=== PATIENT | male | born 1960 | race Caucasian/White ===

== ENCOUNTER 2016-12-11 01:19 | Emergency (ER) | payer MEDICARE, SELFPAY ==
[~2016-12-11 01:19] MED LIST: ASPIRIN EC81 MG PO; ASPIRIN325 MG PO; ATORVASTATIN CA40 MG PO; BUPROPION HCL150 M1 PO; CARAFATE DPS1 GM PO; CARVEDILOL25 MG PO; CARVEDILOL6.25 MG PO; CATAPRES-DPS0.1 MG PO; CLARITIN DPS10 MG PO; CLOPIDOGREL75 MG PO; COLACE-DPS100 MG PO; COLACE100 MG PO; COZAAR DPS50 MG PO; COZAAR100 MG PO; FOLIC ACID1 MG PO; FOLVITE-DPS1 MG PO; FUROSEMIDE80 MG PO; IMDUR DPS30 MG PO; IMDUR DPS60 MG PO; INSULIN U SQ; KLOR-CON M2020 ME1 PO; LASIX DPS20 MG PO; LASIX DPS80 MG PO; LIPITOR DPS40 MG PO; MAALOX DPS30 ML PO; METOLAZONE5 MG PO; NITROSTAT0.4 MG SL; PLAVIX75 MG PO; PROTONIX40 MG PO; PROVENTIL HFA6.7 GM IH; RENEXA PO; REQUIP1 MG PO; SEN-O-TAB8.6 MG PO; SENNA8.6 M1 PO; SURFAK240 MG PO; TYLENOL325 MG PO; U 500; U 500 SQ; ULTRAM DPS50 MG PO; VITAMIN B1100 MG PO; WELLBUTRIN XL150 MG PO; WELLBUTRIN100 MG PO; ZOFRAN4 MG PO; ZOLOFT DPS100 MG PO
--- NOTE | 2016-12-11 05:25 | ER ---
ADMIT: 12/11/2016 RM/LOC: ER [facility] MR#: [id number] [address] [address] TATE GREGORY [address] [place] [address] Emergency Room Report SEX: M AGE: 56 : 1960 DATE: 12/11/2016 HISTORY OF PRESENT ILLNESS: The patient is a 56-year-old male, came to the ER with chief complaint of high blood sugar and headaches. Per the patient, he has a history of chronic kidney disease stage 3, diabetes, and CHF, and quadruple bypass. The patient states his blood sugar has always been under control in the 150s, but tonight at 10:00 p.m., he checked the blood sugar, was 500, and after that, he had 120 units of Humulin 500, and the next time before coming to the ER he checked the blood sugar, it was 400. The patient denies any nausea, vomiting, abdominal pain, or diarrhea. The patient denies any trauma. The patient said he has generalized headache, which is moderate and started gradually, and also denies any neck pain or neck stiffness or visual changes or fever at home. Per patient, he has had similar headaches in the past before. PHYSICAL EXAMINATION: VITAL SIGNS: Blood pressure was elevated with a systolic of 170 to 180s, and the patient was mildly tachycardic, was afebrile. HEAD AND NECK: Soft. Pupils were 3 mm, reactive to light bilaterally. Normal extraocular movements. Cranial nerve motor and sensory and cerebellar tests are all negative. LUNGS: Equal normal bilateral breath sounds. HEART: Normal S1, S2 without any murmurs, ABDOMEN: Soft without any tenderness. EXTREMITIES: No tenderness on the lower extremities. The rest of the physical exam is noncontributory. LABORATORY DATA: Urine was negative for ketones. Considering the patient's blood sugar and history of CHF, the patient received 500 mL of normal saline IV. The headache was controlled with morphine and Tylenol. Followup blood pressure was decreasing. Blood sugar was in rate of 300s. The patient could tolerate the p.o., and has no signs or symptoms of DKA or other emergencies of hyperglycemia. The patient recently got a large dose of insulin. PLAN: The patient can be discharged to home safely with return precautions and follow up with the primary doctor tomorrow. The patient acknowledged he understood the plan and agreed with it. Misael Luo MD/ carmela JOB #: [id number] CC: Misael Luo MD, Attending Physician Davidson Pate MD, Family Physician
[2017-02-08] MEDS ORDERED: COMBIVENT RESPIM4 GM IH (20:00)
[2017-02-08] MEDS ORDERED: PLAVIX75 MG PO (20:01)
[2017-02-08] MEDS ORDERED: ATORVASTATIN CA80 MG PO (20:01)
[2017-02-08] MEDS ORDERED: WELLBUTRIN75 MG PO (20:01)
[2017-02-08] MEDS ORDERED: COLACE-DPS100 MG PO (20:01)
[2017-02-08] MEDS ORDERED: LASIX DPS80 MG PO (20:02)
[2017-02-08] MEDS ORDERED: FLONASE 0.05% D16 GM NS (20:02)
[2017-02-08] MEDS ORDERED: [UNRECOGNIZED DRUG - OTHER] PO (20:03)
[2017-02-08] MEDS ORDERED: U-500 SQ ×2 (20:07→20:08)
[2017-02-08] MEDS ORDERED: IMDUR DPS60 MG PO (20:08)
[2017-02-08] MEDS ORDERED: RANEXA500 MG PO (20:09)
[2017-02-08] MEDS ORDERED: COZAAR100 MG PO (20:09)
[2017-02-08] MEDS ORDERED: PROTONIX40 MG PO (20:09)
[2017-02-08] MEDS ORDERED: KLOR-CON M2020 ME1 PO (20:09)
[2017-02-08] MEDS ORDERED: ZOLOFT DPS50 MG PO (20:10)
[2017-02-08] MEDS ORDERED: REQUIP1 MG PO (20:10)
[2017-02-08] MEDS ORDERED: SENOKOT DPS8.6 MG PO (20:10)
[2017-02-08] MEDS ORDERED: ASPIRIN EC81 MG PO (20:11)
[2017-02-08] MEDS ORDERED: TYLENOL DPS325 MG PO (20:11)
[2017-02-08] MEDS ORDERED: VITAMIN B1100 MG PO (20:11)
[2017-02-08] MEDS ORDERED: FA-80.8 MG PO (20:12)
[2017-02-08] MEDS ORDERED: COREG DPS6.25 MG PO (20:12)
== END 2016-12-11 03:54 | disposition home or self-care (01) ==
LOC: ER 01:19
DX: N18.3 Chronic kidney disease, stage 3 (moderate) (principal); E11.22 Type 2 diabetes mellitus with diabetic chronic kidney disease; R51 Headache; Z98.890 Other specified postprocedural states; Z79.4 Long term (current) use of insulin; Z88.2 Allergy status to sulfonamides; Z79.82 Long term (current) use of aspirin; Z79.899 Other long term (current) drug therapy

== ENCOUNTER 2017-02-06 05:42 | Observation (INO) | payer OTHER, MEDICARE ==
[~2017-02-06] VITALS: Ht 182.9 cm; Wt 91.7 kg
--- NOTE | ~2017-02-06 | HP ---
ADMIT: 02/06/2017 RM/LOC: 427 [facility] MR#: [id number] [address] [address] STEPHANE GREGORY [address] [place] [address] History and Physical SEX: M AGE: 56 : 1960 DATE OF SERVICE: 02/06/2017 CHIEF COMPLAINT: Sweats, nausea, diarrhea, elevated troponin, elevated creatinine. HISTORY OF PRESENT ILLNESS: Stephane is a very pleasant 56-year-old [place]-[facility] patient, normally seen at the [facility], presented to the [facility] Emergency Department today after he woke up about 0400 hours this morning with night sweats, nausea, and a sense of orthostatic dizziness. His symptoms this morning were preceded by watery diarrhea for about 7-10 days. He denies any chest pain, shortness of breath, fevers, coffee-ground emesis, melena, hematochezia, recent sick contacts, or travel. PAST MEDICAL HISTORY: 1. Coronary artery disease, status post quadruple coronary artery bypass grafting in 2008 and then subsequent PCI in 2009. 2. Normal left heart catheterization in January of 2015. 3. History of bilateral carotid vascular disease. 4. History of TIAs. 5. History of poorly-controlled diabetes mellitus type 2. Hemoglobin A1c at this time is 10.7. 6. Hypertension. 7. COPD. 8. Gastroesophageal reflux disease. 9. Restless legs syndrome. 10.Peripheral vascular disease. 11.Chronic diastolic heart failure. 12.Macular degeneration. 13.Cataracts. 14.Gout. 15.Depression and anxiety. 16.Obstructive sleep apnea, on CPAP. 17.Hyperlipidemia. PAST SURGICAL HISTORY: He reports: 1. Quadruple bypass in 2008. 2. Previous cholecystectomy. 3. Previous appendectomy. 4. Previous coronary artery stenting. ALLERGIES: HE IS ALLERGIC TO SULFA. MEDICATIONS: His outpatient medications include: 1. Combivent 1 to 2 puffs four times daily as needed. 2. Wellbutrin 150 mg daily. 3. Atorvastatin 80 mg daily. 4. Plavix 75 mg daily. 5. Colace 200 mg twice daily as needed. 6. Flonase nasal spray, two sprays each nostril daily. ADMIT: 02/06/2017 RM/LOC: 427 [facility] MR#: [id number] [address] [address] [facility] [address] [place] [address] History and Physical SEX: M AGE: 56 : 1960 7. Lasix 160 mg twice daily. 8. Guaifenesin 400 mg q.i.d. as needed. 9. U-500 insulin 145 units in the morning, 80 units at noon, and 40 units at bedtime. 10.Isosorbide mononitrate 60 mg daily. 11.Losartan 100 mg daily. 12.Pantoprazole 40 mg twice daily. 13.Potassium chloride 20 mEq daily. 14.Ranolazine 500 mg twice daily. 15.Requip 1 mg at bedtime. 16.Senna 8.6 mg daily as needed. 17.Zoloft 150 mg daily. 18.Thiamine 100 mg daily. 19.Tylenol 650 mg t.i.d. as needed. 20.Aspirin 81 mg daily. 21.Folic acid 800 mcg daily. SOCIAL HISTORY: His service was in the [employer]. 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 He is now on disability. He denies any history of tobacco use. He denies any alcohol use. He denies recreational drug use. He and his live in [facility]. FAMILY HISTORY: Remarkable for extensive history of diabetes and cardiovascular disease. REVIEW OF SYSTEMS: As per HPI. All others reviewed and were negative. PHYSICAL EXAMINATION: VITAL SIGNS: Blood pressure is 140/70, pulse 97, respirations 14, temp 96.0, O2 saturation is 90% on room air. GENERAL: He is awake, alert, obese, in no acute distress. Comfortable on the hospital bed. HEENT: Normocephalic, atraumatic. HEART: Regular rate and rhythm. LUNGS: Clear to auscultation bilaterally. ABDOMEN: Obese, soft, nontender, nondistended. No rebound, guarding, or masses. EXTREMITIES: No cyanosis, clubbing, or edema. LABORATORY AND X-RAY DATA: CBC shows a white count of 7.1, hemoglobin 10.9, platelets of 240. Chest x-ray through the ER shows a left costophrenic angle pleural and parenchymal scarring. Hemoglobin A1c is 10.7. CMP remarkable for a creatinine of 2.1, his baseline is about 1.5 to 1.6. Total cholesterol is 200, triglycerides 442, HDL is 36, his non HDL is 164. Troponin was 0.078. CK 123, CK-MB 2.2. ASSESSMENT: 1. Elevated cardiac troponin. 2. Nausea. ADMIT: 02/06/2017 RM/LOC: 427 [facility] MR#: [id number] [address] [place] [address] [facility] [id number] [place] [id number] History and Physical SEX: M AGE: 56 : 1960 3. Diarrhea. 4. Acute kidney injury. 5. Poorly-controlled diabetes mellitus type 2. 6. Hypertension. 7. Hyperlipidemia. 8. Coronary artery disease, status post bypass and stents. 9. Peripheral vascular disease. 10.History of transient ischemic attack. 11.History of diabetic arthropathy, peripheral neuropathy, retinopathy, and nephropathy. 12.Chronic obstructive pulmonary disease. 13.Gastroesophageal reflux disease. 14.Restless legs syndrome. 15.Anemia of chronic disease. 16.Chronic diastolic heart failure. 17.Depression and anxiety. 18.Gout. 19.History of obstructive sleep apnea, on CPAP. PLAN: We are going to check an additional two sets of cardiac enzymes, an echocardiogram, and obtain an AURA consult. We will check stool studies for enteric pathogen, C. diff, and O and P. Dr. Bledsoe with Nephrology has been consulted for his elevated creatinine and acute kidney injury. His insulin regimen is very heavy on the long-acting insulin with no mealtime insulin, he has actually got a pancake in the room with him. I suspect he probably has an A1c of 10.7 because he does not cover his meals. At this time, I am not going to continue t.i.d. dosing of U-500 insulin; instead, I am getting to start him on some Lantus, long-acting insulin. We will start him on a subcutaneous sliding scale insulin. We will try and keep his sugars down as best we can but ultimately, he may need to see an typesetters printer as an outpatient to get this under better control. Further management is going to be dependent on his clinical course. Dane Ibanez MD/ sallyl JOB #: [id number] CC: Dane Ibanez MD, Attending Physician Davidson Pate MD, Family Physician
--- NOTE | ~2017-02-06 | ECH ---
Transthoracic Echocardiography Report (TTE) Demographics Patient Name TATE GREGORY Date of Study 02/06/2017 Patient Number [id number] Visit Number [id number] Date of 1960 Room Number 427 Accession Number [id number] Gender Male Age 56 year(s) Referring King Jan Rincon MD Technical Analyst Ramya Gannon Physician Marcelle Novak MD [facility] Physician Interpreting Vi SMALL Junior Brand Manager Physician Donato Supervising Ordering Physician Marcelle Novak MD, MD/P Nurse Stress Orchid Transplanter Conclusions Contractility Score Summary Normal Left Ventricular contractility was noted. Summary Technically fair exam. The estimated left ventricular ejection fraction is 60%. Moderate concentric left ventricular hypertrophy. Diastolic assessment reveals Grade I diastolic dysfunction. No significant valvular abnormalities. Recommendation The patient will be given the results of this study by the physician who ordered the exam. Procedure Type of Study TTE procedure:Echo Complete SF. Procedure Date Date: 02/06/2017 Start: 09:55 AM Technical Quality: Fair due to body habitus. Indications:Elevated Troponin, Diabetes, RBBB and History of CABG. Additional Indications:History of stents Appropriate Use Criteria: 9 Height: 72 inches Weight: 260 pounds BSA: 2.38 m Rhythm: Sinus with bundle branch block HR: 80 bpm BP: 137/70 mmHg Allergies - Sulfa. M-Mode/2D Measurements LV Diastolic Dimension: 4.72 cm LV Systolic Dimension: 3.2 cm LV Septum Diastolic: 1.56 cm LV PW Diastolic: 1.53 cm AO Root Dimension: 3.07 cm Cardiac Output: 5 l/min LA Dimension: 4.92 cm Cardiac Index: 2.1 l/min*m RV Diastolic Dimension: 3.58 cm LA volume index: 30 ml/m LVOT: 1.97 cm LVOT VTI: 20.51 cm RV Base: 2.9 cm LV Stroke volume: 62.48 ml RV Mid: 1.6 cm LV Stroke volume index: 26.25 ml/m TAPSE: 1.7 cm TDI-S': 10 cm/s Doppler Measurements AV Peak Velocity: 1.4 m/s MV Peak E-Wave: 1.09 m/s AV Peak Gradient: 7.84 mmHg MV Peak A-Wave: 1.2 m/s AV Mean Gradient: 4.12 mmHg MV E/A Ratio: 0.91 LVOT Peak Velocity: 1.15 m/s MV P1/2t: 63.3 msec AV Area (Continuity):2.53 cm MV Deceleration Time: 203.1 msec MV Area (PHT): 3.48 cm PV Peak Velocity: 1.06 m/s E' Septal Velocity: 0.07 m/s PV Peak Gradient: 4.49 mmHg E' Lateral Velocity: 0.06 m/s A' Septal Velocity: 0.11 m/s A' Lateral Velocity: 0.12 m/s RA Area: 14.73 cm Findings Left Ventricle The left ventricle is normal in size . Moderate concentric left ventricular hypertrophy. Diastolic assessment reveals Grade I diastolic dysfunction. Right Ventricle Normal right ventricle structure and function. Left Atrium Normal left atrial size. Right Atrium Normal right atrial size. Mitral Valve Mild mitral annular calcification. Aortic Valve The aortic valve is mildly sclerotic. Tricuspid Valve Normal tricuspid valve structure and function. Pulmonic Valve Normal pulmonic valve structure and function. Trivial pulmonic valve regurgitation by color Doppler. Pericardial Effusion No evidence of pericardial effusion. Miscellaneous Visualized portions of the aortic root and ascending aorta appear normal in size. Pleural Effusion No evidence of pleural effusion. Contractility Score LV regional wall motion:(0-Non visualized 1-Normal 2-Hypokinesis 3-Akinesis 4-Dyskinesis 5-Aneurysm) Signature
--- NOTE | 2017-02-07 11:04 | CO ---
ADMIT: 02/06/2017 RM/LOC: 427 [facility] MR#: [id number] [address] [address] TATE GREGORY [place] [address] [place] [address] Consultation SEX: M AGE: 56 : 1960 DATE OF CONSULTATION: 02/06/2017 ATTENDING PHYSICIAN: Dane Ibanez MD CONSULTING PHYSICIAN: Dmitriy Bledsoe MD REASON FOR CONSULTATION: Chronic kidney disease stage 3. HISTORY OF PRESENT ILLNESS: The patient is a 56-year-old gentleman, who has a history of uncontrolled type 2 diabetes mellitus along with coronary artery disease, for which he has had a CABG along with PCI as well as hypertension and chronic diastolic heart failure who presented to the hospital earlier this morning with a chief complaint of weakness. He reports that he was in his usual state of health until last night but woke up this morning and was very weak. His had to help him to the chair. He was eventually evaluated and was found to have an NSTEMI. He was transferred to [facility] for further care. He tells me that he has had 2 or 3 episodes of weakness over the last week and a half. He has also been having some loose stools over that duration of time. Most of the days, he only has one bowel movement, but sometimes 2 or 3 bowel movements. Otherwise has no localizing complaints. No chest pain. No shortness of breath. No urinary complaints. He has been having occasional dizziness. Appetite and energy levels have been fair. REVIEW OF SYSTEMS: A complete review of systems is negative in detail except as mentioned in history of present illness above. PAST MEDICAL HISTORY: 1. Coronary artery disease, status post CABG as well as PCI. 2. TIA. 3. Uncontrolled diabetes mellitus complicated by retinopathy, nephropathy, and neuropathy. 4. Hypertension. 5. GERD. 6. COPD. 7. Peripheral vascular disease. 8. Erectile dysfunction. 9. Chronic diastolic heart failure. 10.Macular degeneration. 11.Gout. 12.Depression. 13.Obstructive sleep apnea, on CPAP. 14.Dyslipidemia. ALLERGIES: SULFA. MEDICATIONS: He reports being on: 1. Plavix. 2. Coreg. ADMIT: 02/06/2017 RM/LOC: 427 [facility] MR#: [id number] [address] [address] [facility] [address] [place] [address] Consultation SEX: M AGE: 56 : 1960 3. Lasix. 4. Potassium supplements. 5. Ranexa. 6. Zoloft. 7. He also takes insulin. A full medication list is to follow. It appears he is not on renin angiotensin blockade although he was on it previously. FAMILY HISTORY: No family history of chronic kidney disease on renal replacement therapy. SOCIAL HISTORY: He is disabled. 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 He is lifelong nonsmoker. No alcohol or recreational drug use at this time. He is and lives with his and his youngest daughter. PHYSICAL EXAMINATION: VITAL SIGNS: Temperature 96.1 Fahrenheit, pulse 87, blood pressure 137/70. GENERAL: He is comfortable in the bed. HEENT: Head is nontraumatic and normocephalic. Extraocular intact. No conjunctival pallor. Dry mucosa. NECK: Supple without any JVD. CHEST: Right basilar crackles. CVS: Regular rate and rhythm. S1, S2 heard. No rubs, murmurs, or gallops. ABDOMEN: Soft, nontender. EXTREMITIES: No lower extremity edema. SKIN: No rash or nodules. NEUROLOGIC: Alert, awake, and oriented x3. He is able to move all his extremities. PSYCHIATRIC: Affect and memory within normal limits. MUSCULOSKELETAL: Major joints within normal limits. Range of motion within normal limits. LABORATORY DATA: Reviewed. BMP with sodium 140, potassium 3.7, creatinine 2.1, calcium 9.0, magnesium 1.9. Hemoglobin is 10.9. ADMIT: 02/06/2017 RM/LOC: 427 [facility] MR#: [id number] [address] [address] [facility] [address] [place] [address] Consultation SEX: M AGE: 56 : 1960 ASSESSMENT/PLAN: 1. Chronic kidney disease stage 3 - likely secondary to diabetic nephropathy. Baseline serum creatinine is not entirely clear but it was 1.6 in September 2016 and 2.1 in November 2016, and 2.1 today. I will check urine studies and quantify proteinuria if any. I recommend blood pressure control to retard progression of chronic kidney disease. 2. Hypertension - blood pressure is okay. I will hold his diuretics for the time being considering his complaints of diarrhea. It appears, he is not on a renin-angiotensin blockade and I would like to initiate that if his kidney function stays stable and there are no other contraindications. Thank you for this consultation. Please do not hesitate to contact me with any questions. Dmitriy Bledsoe MD/ carmela JOB #: [id number] CC: Dane Ibanez MD, Attending Physician Davidson Pate MD, Family Physician
--- NOTE | 2017-02-08 13:01 | ER ---
ADMIT: 02/06/2017 RM/LOC: ER [facility] MR#: [id number] [address] [address] TATE GREGORY Sam[place] [address] [place] [address] Emergency Room Report SEX: M AGE: 56 : 1960 DATE: 02/06/2017 HISTORY OF PRESENT ILLNESS: The patient is a 56-year-old male with a past medical history of diabetes and acute coronary artery syndrome, status post 5 stents and quadruple bypass, came to the ER with chief complaint of nausea and vomiting and feeling very weak for an hour and half before coming to the hospital. The patient states he could not even walk because of the weakness and he felt very sick and he was diaphoretic and nauseous. The patient denies any headache or chest pain or shortness of breath or abdominal pain. The patient also denied any fall or weakness in one extremity or numbness in one extremity. PHYSICAL EXAMINATION: VITAL SIGNS: The patient has stable vitals. GENERAL: The patient is in moderate distress, nauseous, and anxious. HEENT/NECK: Conjunctivae are not pale. Trachea is midline. There is no bruit in the neck. There is no radiation of the murmur in the neck. CHEST: Clear bilaterally. HEART: Normal S1, S2, without any murmurs or gallops. ABDOMEN: Soft and nontender. EXTREMITIES: There is no tenderness or swelling in the lower extremities. The rest of the physical exam is noncontributory. EMERGENCY ROOM COURSE: The patient received aspirin p.o. A fingerstick blood sugar was done and chest x-ray was negative for any acute changes, EKG was positive for widened QRS, right bundle-branch block. The patient had WBC of 7.1, with hemoglobin of 10.9, serum ketones were negative. Sodium was 140 with potassium of 3.7, and bicarb of 28 and BUN of 36 and creatinine of 2.1. Glucose was 180. Troponin was elevated to 0.07. Family Medicine was consulted, and the patient was admitted for rule out non-STEMI, weakness, acute kidney injury. Misael Luo MD/ carmela JOB #: [id number] CC: Misael Luo MD, Attending Physician Davidson Pate MD, Family Physician
[2017-02-08] MEDS ORDERED: COMBIVENT RESPIM4 GM IH (20:00)
[2017-02-08] MEDS ORDERED: ATORVASTATIN CA80 MG PO (20:01)
[2017-02-08] MEDS ORDERED: WELLBUTRIN75 MG PO (20:01)
[2017-02-08] MEDS ORDERED: PLAVIX75 MG PO (20:01)
[2017-02-08] MEDS ORDERED: COLACE-DPS100 MG PO (20:01)
[2017-02-08] MEDS ORDERED: FLONASE 0.05% D16 GM NS (20:02)
[2017-02-08] MEDS ORDERED: LASIX DPS80 MG PO (20:02)
[2017-02-08] MEDS ORDERED: [UNRECOGNIZED DRUG - OTHER] PO (20:03)
[2017-02-08] MEDS ORDERED: U-500 SQ ×2 (20:07→20:08)
[2017-02-08] MEDS ORDERED: IMDUR DPS60 MG PO (20:08)
[2017-02-08] MEDS ORDERED: KLOR-CON M2020 ME1 PO (20:09)
[2017-02-08] MEDS ORDERED: COZAAR100 MG PO (20:09)
[2017-02-08] MEDS ORDERED: PROTONIX40 MG PO (20:09)
[2017-02-08] MEDS ORDERED: RANEXA500 MG PO (20:09)
[2017-02-08] MEDS ORDERED: REQUIP1 MG PO (20:10)
[2017-02-08] MEDS ORDERED: SENOKOT DPS8.6 MG PO (20:10)
[2017-02-08] MEDS ORDERED: ZOLOFT DPS50 MG PO (20:10)
[2017-02-08] MEDS ORDERED: ASPIRIN EC81 MG PO (20:11)
[2017-02-08] MEDS ORDERED: TYLENOL DPS325 MG PO (20:11)
[2017-02-08] MEDS ORDERED: VITAMIN B1100 MG PO (20:11)
[2017-02-08] MEDS ORDERED: COREG DPS6.25 MG PO (20:12)
[2017-02-08] MEDS ORDERED: FA-80.8 MG PO (20:12)
--- NOTE | 2017-02-11 09:39 | CO ---
ADMIT: 02/06/2017 RM/LOC: 427 [facility] MR#: [id number] 2620 [facility] [address] [place] [id number] [place] [address] [place] [address] Consultation SEX: M AGE: 56 : 1960 DATE OF CONSULTATION: 02/06/2017 ATTENDING PHYSICIAN: Dane Ibanez MD CONSULTING PHYSICIAN: Donato Lebron MD REASON FOR CONSULT: Chest pain. Lyssa Henry RN, scribing for Dr. Donato Lebron. HISTORY OF PRESENT ILLNESS: Stephane is a pleasant 56-year-old male, I have been asked to see in Cardiology consultation by Dr. Ibanez for chest discomfort. Stephane follows with me in [place] and was last seen in September of this year. He has history of extensive coronary and peripheral vascular disease along with very aykmezkmd-bk-[id number] diabetes. He also has history of difficult-to- control hypertension. In the past, he has had issue of acute renal failure with treatment of his blood pressures and had been transferred to [facility] in September of this year. He has followed with a mobile home technician through the [place]. He has history of four vessel bypass in 2008, ALBERTS to LAD, BERNARDA to PDA, SVG to OM1 and OM2, and multiple stents since that time. Last cardiac catheterization was in January of 2016 showing all grafts being patent. Last echocardiogram was in July showing ejection fraction of 55%. He is followed by Vascular Surgery for his peripheral vascular disease as well. Stephane presented to [facility] today with complaints of weakness and nausea. He reports that he woke up about 4 o'clock this morning with severe nausea, dizziness, and severe weakness. He needed help to get to the bathroom and then, he was having emesis. He could not get off the floor of the bathroom on his own and required help from his and daughter into his wheelchair to which they did take him to the car and driving into the emergency room here. He stated that over the last few weeks, he felt he had been more tired but he also describes walking in grocery stores when they have not had a scooter and while it was not easy for him, he was able to do it which was an improvement from his baseline. In the emergency room, lab work was drawn showing mildly elevated troponin of 0.078. His creatinine elevated at 2.1. He got IV fluids, antiemetics, and reports that his symptoms have greatly improved. He was eating breakfast this morning without any issues. He denies any recent fever or chills. He was eating okay yesterday. Over the last 2 weeks, he has had issue with vomiting and diarrhea up until few days ago. He does have history of sleep apnea. He reports he lost his CPAP after hospitalization in [place] in June and has not had that replaced. PAST MEDICAL HISTORY: 1. Obstructive sleep apnea, untreated. 2. Hypertension. 3. Hyperlipidemia. 4. Diabetes. 5. Coronary artery disease as outlined above. 6. Peripheral vascular disease. ADMIT: 02/06/2017 RM/LOC: 427 [facility] MR#: [id number] [address] [place] [id number] [facility] [address] [place] [address] Consultation SEX: M AGE: 56 : 1960 7. Chronic anemia. 8. Asthma. 9. Chronic constipation. 10.Chronic kidney disease. 11.Colon polyps. 12.Depression. 13.Erectile dysfunction. 14.Esophageal ulcer. 15.History of GERD. 16.Gout. 17.Headaches. 18.Hearing loss. 19.Heartburn. 20.Ischemic ulcer on the right foot. 21.Macular degeneration. 22.Neuropathy. 23.Obesity. 24.Restless legs syndrome. 25.Retinal hemorrhage. 26.Retinopathy. 27.TIAs x2. 28.COPD. PAST SURGICAL HISTORY: Includes cardiac surgeries as well as eye surgery, appendectomy, cholecystectomy, back surgery, strangulated hernia repair, foot surgery, and cataract extraction. ALLERGIES: SULFA. MEDICATIONS: The patient's current medication list includes: 1. Potassium chloride 20 mEq daily, which is held. 2. Ranolazine 500 twice daily. 3. Ropinirole 1 mg at bedtime. 4. Senna 8.6 daily as needed. 5. Sertraline 150 daily. 6. Thiamine 100 daily. 7. Acetaminophen 650 three times a day. 8. Aspirin 81 daily. 9. Folic acid 800 daily. 10.Bupropion 150 mg daily. 11.Atorvastatin 80 daily. 12.Clopidogrel 75 daily. 13.Docusate sodium 200 mg twice daily as needed. 14.Fluticasone 50 mcg two sprays each nares at bedtime as needed. 15.Guaifenesin 400 mg four times a day p.r.n. 16.Imdur 60 mg daily. 17.Pantoprazole 40 twice daily. 18.Furosemide and losartan have been held. ADMIT: 02/06/2017 RM/LOC: [address] [facility] MR#: [id number] [facility] [address] [address] [place] [address] [place] [address] Consultation SEX: M AGE: 56 : 1960 FAMILY HISTORY: Positive family history of coronary artery disease in father and mother. Positive family history of diabetes in maternal aunts and uncles and maternal grandmother as well as mother. Positive family history of ovarian cancer in maternal grandmother. SOCIAL HISTORY: Stephane is . He lives in [place] with his and he has 3 children. He never smoked. He denies any alcohol use or history of drug use. He drinks soda on a regular basis. He has a sedentary lifestyle and he is usually in a wheelchair. He states he follows diabetic and low-salt diet. REVIEW OF SYSTEMS: GENERAL: Reports increased fatigue over the last few weeks. No recent fever, chills, or sweats. EYES: He has history of cataract extraction. He has had history of vision loss in the past. THROAT, MOUTH, AND EARS: No sinus congestion or sore throat. Denies any hearing loss. RESPIRATORY: History of COPD, history of obstructive sleep apnea. He is not currently using CPAP. No hemoptysis. GASTROINTESTINAL: History of gastroesophageal reflux disease. Denies any trouble swallowing, hiatal hernia, or GI bleeding. GENITOURINARY: History of chronic kidney disease. No current issues with burning or hematuria. MUSCULOSKELETAL: History of chronic back pain, osteoarthritis. Denies any changes with this. ENDOCRINE: History of diabetes. Denies thyroid disease. HEMATOLOGY: History of anemia. Denies cancer. NEUROLOGIC: History of TIAs x2. Denies any numbness or tingling currently. PSYCHIATRIC: History of depression. PHYSICAL EXAMINATION: VITAL SIGNS: Blood pressure 137/70, heart rate 87, respirations 16, temperature 96.1, and oxygenation 96% on O2. SKIN: [place], warm and dry. EYES: Sclerae clear. No xanthelasmas. ENT: Oral mucosa is pink and moist. No jugular venous distention or carotid bruits. CHEST: Respirations are even and unlabored. Lungs are clear to auscultation. HEART: Regular rate and rhythm. Normal S1, S2. No murmurs, rubs or gallops. ABDOMEN: Obese, nontender, nondistended. MUSCULOSKELETAL: Gait is normal. EXTREMITIES: Mild edema bilaterally. No cyanosis or clubbing. PSYCHIATRIC: Alert and oriented. Mood and affect are appropriate. DIAGNOSTIC DATA: Chest x-ray on 02/06 showed no consolidation or pleural effusion. Sodium 140, potassium 3.7, BUN 36, creatinine 2.1, glucose 188, and magnesium 1.9. CK 123 and MB 2.2. Troponin 0.078. White blood cell count 7.1, hemoglobin 10.9, hematocrit 32.3, platelets 240, and hemoglobin A1c 10.7. ADMIT: 02/06/2017 RM/LOC: 427 [facility] MR#: [id number] 2620 [facility] [address] [place] [id number] STEPHANE GREGORY [address] [place] [address] Consultation SEX: M AGE: 56 : 1960 ASSESSMENT AND PLAN: 1. Indeterminate troponin. No chest pain or signs of acute coronary syndrome. EKG shows no acute changes. I will check echocardiogram for any wall motion abnormalities, valvular abnormalities, or decreased ejection fraction. He does have elevated troponin. I suspect this is secondary to acute kidney injury and demand ischemia. He will continue medical treatment. I will add back his carvedilol 3.125 mg p.o. b.i.d., [facility]5 [facility] twice a day and that was stopped because of hypotension. 2. Nausea, vomiting, and diarrhea. 3. Coronary artery disease, status post bypass. 4. Diabetes mellitus. 5. Hypertension. We will restart the Coreg. 6. Hyperlipidemia. 7. Peripheral vascular disease. Thank you for the consultation. "I have read and agree with the documentation that has been completed regarding this visit. By signing this record, I attest that the documentation was completed in my physical presence and is an accurate record of the encounter." Lyssa Henry RN / Donato Lebron MD / carmela JOB #: [id number] CC: Dane Ibanez MD, Attending Physician Davidson Pate MD, Family Physician
--- NOTE | 2017-02-17 08:36 | DS ---
ADMIT: 02/06/2017 RM/LOC: [address] [facility] MR#: [id number] [address] [address] STEPHANE [place]O [place] [address] [place] [address] Discharge Summary SEX: M AGE: 56 : 1960 ADMISSION DATE: 02/06/2017 DISCHARGE DATE: 02/07/2017 ADMITTING DIAGNOSES: 1. Elevated indeterminate cardiac troponin. 2. Nausea, vomiting, diarrhea. 3. Questionable acute kidney injury. 4. Poorly controlled diabetes mellitus type 2. .. 5. Hypertension. 6. Hyperlipidemia. 7. Coronary artery disease, status post bypass and stents. 8. Peripheral vascular disease. 9. History of transient ischemic attack. 10.History of diabetic arthropathy, peripheral neuropathy, retinopathy and nephropathy. 11.Chronic obstructive pulmonary disease. 12.Gastroesophageal reflux disease. 13.Restless legs syndrome. 14.Anemia of chronic disease. 15.Depression/anxiety. 16.Gout. 17.History of obstructive sleep apnea. DISCHARGE DIAGNOSES: 1. Elevated indeterminate cardiac troponin. 2. Nausea, vomiting, diarrhea. 3. Questionable acute kidney injury. 4. Poorly controlled diabetes mellitus type 2. .. 5. Hypertension. 6. Hyperlipidemia. 7. Coronary artery disease, status post bypass and stents. 8. Peripheral vascular disease. 9. History of transient ischemic attack. 10.History of diabetic arthropathy, peripheral neuropathy, retinopathy and nephropathy. 11.Chronic obstructive pulmonary disease. 12.Gastroesophageal reflux disease. 13.Restless legs syndrome. 14.Anemia of chronic disease. 15.Depression/anxiety. 16.Gout. 17.History of obstructive sleep apnea. PROCEDURES: None. CONSULTATIONS: 1. Donato Lebron MD with [facility], consulted on 02/06/2017. 2. Dmitriy Bledsoe MD of Nephrology, consulted 02/06/2017. ADMIT: 02/06/2017 RM/LOC: [address] [facility] MR#: [id number] [facility]#: [id number] [address] [address] [place] [address] [place] [address] Discharge Summary SEX: M AGE: 56 : 1960 HISTORY AND PHYSICAL EXAM: Mr. Moscoso is a pleasant 56-year-old, [place] seen at the [place], who presented to the [facility] Emergency Department on the morning of 02/06/2017 after he woke up at 4 o'clock in the morning with sweats, nausea, diaphoresis and a sense of orthostatic dizziness. The symptoms were preceded by watery diarrhea for about 7-10 days. On his initial exam, his vitals were stable. He was afebrile. EKG did not show any hyperacute ST-T wave changes. He had a mildly elevated cardiac troponin at 0.078. He was subsequent admitted to the hospital for serial cardiac enzymes and further observation. HOSPITAL COURSE: His hospital course was unremarkable. His cardiac enzymes normalized. His EKGs remained negative. Dr. Lebron with [facility] was consulted and did not feel that Mr. Moscoso required any acute stress testing or angiography. Dr. Bledsoe with [facility] was consulted for an elevated serum creatinine of 2.1. This was ultimately felt to be due to his longstanding poorly controlled diabetes and poorly controlled hypertension. By the morning of 02/07/2017, Stephane was felt safe for discharge with further management by his [facility] providers of whom he sees a primary physician, toe puller and an health program director for his poorly controlled diabetes. DISCHARGE CONDITION: Fair. He has a number of chronic medical conditions which are contributing to his overall general poor health. DISPOSITION: He is discharged home. DISCHARGE MEDICATIONS: I am going to send him back home on all the medications he came in with in addition to some Coreg 6.25 mg p.o. b.i.d. FOLLOWUP: He is to follow up with Dr. Lebron with [facility] in the next 1-2 months. I have asked that he follow up with his [facility] provider early next week and we will see if we can't get him an appointment with his [facility] toe puller sometime within the next 1-2 weeks. Dane Ibanez MD/ bertog JOB #: [id number] CC: Dane Ibanez MD, Attending Physician Davidson Pate MD, Family Physician
== END 2017-02-07 11:38 | disposition home or self-care (01) ==
LOC: ER 05:42 → 4PCU 08:00
PROVIDERS: ADMIT Family Medicine
DX: R79.89 Other specified abnormal findings of blood chemistry (principal); E11.22 Type 2 diabetes mellitus with diabetic chronic kidney disease; E11.65 Type 2 diabetes mellitus with hyperglycemia; I13.0 Hypertensive heart and chronic kidney disease with heart failure and stage 1 through stage 4 chronic kidney disease, or unspecified chronic kidney disease; N18.3 Chronic kidney disease, stage 3 (moderate); E11.42 Type 2 diabetes mellitus with diabetic polyneuropathy; D63.8 Anemia in other chronic diseases classified elsewhere; I50.32 Chronic diastolic (congestive) heart failure; N17.9 Acute kidney failure, unspecified; I45.10 Unspecified right bundle-branch block; R19.7 Diarrhea, unspecified; I25.10 Atherosclerotic heart disease of native coronary artery without angina pectoris; I77.9 Disorder of arteries and arterioles, unspecified; J44.9 Chronic obstructive pulmonary disease, unspecified; K21.9 Gastro-esophageal reflux disease without esophagitis; G25.81 Restless legs syndrome; I73.9 Peripheral vascular disease, unspecified; F32.9 Major depressive disorder, single episode, unspecified; F41.9 Anxiety disorder, unspecified; G47.33 Obstructive sleep apnea (adult) (pediatric); E78.5 Hyperlipidemia, unspecified; H35.30 Unspecified macular degeneration; E11.319 Type 2 diabetes mellitus with unspecified diabetic retinopathy without macular edema; M10.9 Gout, unspecified; Z95.1 Presence of aortocoronary bypass graft; Z86.73 Personal history of transient ischemic attack (TIA), and cerebral infarction without residual deficits; Z95.5 Presence of coronary angioplasty implant and graft; Z79.4 Long term (current) use of insulin; Z79.02 Long term (current) use of antithrombotics/antiplatelets; Z82.49 Family history of ischemic heart disease and other diseases of the circulatory system

== ENCOUNTER 2017-03-05 10:00 | Emergency (ER) | payer MEDICARE ==
[~2017-03-05 10:00] MED LIST changes: +ATORVASTATIN CA80 MG PO; +COMBIVENT RESPIM4 GM IH; +COREG DPS6.25 MG PO; +FA-80.8 MG PO; +FLONASE 0.05% D16 GM NS; +RANEXA500 MG PO; +SENOKOT DPS8.6 MG PO; +TYLENOL DPS325 MG PO; +U-500 SQ; +WELLBUTRIN75 MG PO; +ZOLOFT DPS50 MG PO; +[UNRECOGNIZED DRUG - OTHER] PO
--- NOTE | 2017-03-07 02:42 | ER ---
ADMIT: 03/05/2017 RM/LOC: ER [facility] MR#: [id number] [address] [address] [place] [address] [place] [address] Emergency Room Report SEX: M AGE: 56 : 1960 DATE: 03/05/2017 TIME: 10 o'clock. Please refer to my T-sheet for complete H and P. Briefly, patient is a 56-year-old, who has been in and out of the clinics and ERs several times. He was at [facility], [facility], and the [place] today. They sent him over here. He has been having blood pressures that were running high. Did have a vague headache. PHYSICAL EXAMINATION: VITAL SIGNS: Blood pressure 171/85, otherwise vital signs stable. HEENT: Grossly normal. LUNGS: Clear. HEART: Regular. ABDOMEN: Soft. EXTREMITIES: 3+ edema. EMERGENCY DEPARTMENT COURSE: CT head showed no acute changes. CBC normal except hemoglobin 10.5. Chemistries normal except glucose 192 and creatinine 1.7. Troponin negative. EKG was sinus rhythm, rate 72, right bundle-branch block, but no hyperacute changes. He remained stable. I gave him clonidine 0.2 p.o., Lasix 80 IV. I had a discussion with Dr. Lebron who follows him. He recommended adding clonidine scheduled, 0.1 t.i.d. We will start with once a day, increase it as needed. We are going to bump his Lasix up. He has an appointment with Dr. Lebron in 1 week. [facility] talked to the [facility], they did not have a [facility] in [place]. I offered to admit the patient overnight in observation, they elected not to after long discussions. ASSESSMENT: 1. Hypertension, poorly controlled. 2. Renal insufficiency. 3. Fluid retention. PLAN: Follow up with Dr. Lebron as scheduled appointment, add his clonidine 0.1 t.i.d., Lasix increased to 120 in the morning and 80 in the afternoon. Return if worse. Augustine Weiss MD/ carmela JOB #: [id number] CC: Augustine Weiss MD, Attending Physician [facility] Physician, Family Physician Donato Lebron MD
== END 2017-03-05 12:20 | disposition home or self-care (01) ==
LOC: ER 10:00
DX: I10 Essential (primary) hypertension (principal); N28.9 Disorder of kidney and ureter, unspecified; R60.9 Edema, unspecified; E11.9 Type 2 diabetes mellitus without complications; F32.9 Major depressive disorder, single episode, unspecified; K21.9 Gastro-esophageal reflux disease without esophagitis